=== PATIENT | male | born 1990 | race Hispanic/Latino ===

== ENCOUNTER 2022-03-17 20:10 | Emergency (ER) | payer SELFPAY ==
--- OUTSIDE RECORDS SUMMARY | 2022-03-17 20:13 | XMS REPORT | Continuity of Care Document ---
:1990 Author Organization [facility] t Address [address] [place] [address] Care Team Providers Name Role Phone Pcp, Does Not Have A Primary Care Physician Thompson DO Attending Clinician THOMPSON Attending Clinician Unavailable Payers Payer Name Policy Type Policy Number Effective Date Expiration Date S [facility] - [id number] 2018 00:00:00 OUT OF STATE Problems Condition Condition Condition Status Onset Resolution Last Treating Co mments Source Name Details Category Date Date Treatment Clinician Date No known No known Disease Unive rs active active ity of problems problems [facility] Allergies, Adverse Reactions, Alerts Allergy Allergy Status Severity Reaction(s) Onset Inactive Treating Comm ents Source Name Type Date Date Clinician NO KNOWN Drug Active Univers ALLERGIE Class ity of S [facility] Social History Social Habit Start Date Stop Date Quantity Comments Source Exposure to Not sure [facility] SARS-CoV-2 (event) Medica l Branch Sex Assigned At [birth year] [facility] 00:00:00 00:00:00 [facility] Branch Smoking Status Start Date Stop Date Source Unknown if ever smoked [facility] Medications Ordered Filled Start Stop Current Ordering Indication Dosage Frequency Signature Comments Components Source Medication Medication Date Date Medication? Clinician (SIG) Name Name hydrOXYzine Yes [id number] 10mg Take 1 Univers 10 mg 9-02 tablet by ity of tablet 00:00: mouth [place] 00 every 6 Medical (six) Branch hours. hydrocortis Yes [id number] Apply to Univers one 1 % 9-02 affected ity of cream 00:00: area(s) [place] 00 daily. Medical Branch Vital Signs Vital Name Observation Time Observation Value Comments Source Systolic blood 2021-07-03 12:50:00 153 mm[Hg] Univer sity of pressure [facility] Diastolic blood 2021-07-03 12:50:00 105 mm[Hg] Unive rsity of pressure [facility] Heart rate 2021-07-03 12:50:00 70 /min [facility] Body temperature 2021-07-03 12:50:00 37 [facility] Respiratory rate 2021-07-03 12:50:00 20 /min [facility] Body height 2021-07-03 12:50:00 170.2 cm [facility] Body weight 2021-07-03 12:50:00 87.363 kg [facility] BMI 2021-07-03 12:50:00 30.17 kg/m2 [facility] Oxygen saturation in 2021-07-03 12:50:00 97 /min [facility] Arterial blood by [facility] Pulse oximetry [place] Procedures Procedure Date / Time Performed Performing Clinician [facility] e NOTICE OF PRIVACY 2021-07-03 12:43:57 Doctor Unassigned, No [facility] PRACTICES Name [facility] CONSENT/REFUSAL FOR 2021-07-03 12:41:48 [facility], [facility] AND Name Medical Branch TREATMENT Encounters Start End Encounter Admission Attending Care Care Encounter Source Date/Time Date/Time Type Type Clinicians Facility Department ID 2021-07-03 2021-07-03 Emergency Singer WAITALIA [id number] Univers 07:53:00 08:25:00 Sang Ricci [id number] i ty [facility] [id number] [facility] [id number] [facility] 084 Branch 2021-07-03 2021-07-03 Emergency X BETSY THOMPSON ERT [id number] Univers 07:41:00 07:41:00 SANG rosario [facility] Results This patient has no known results.
--- NOTE | 2022-03-17 21:33 | EDPHYS ---
Physician Documentation [facility] Name: Dmitriy Rojas Age: 32 yrs Sex: Male : 1990 Arrival Date: 03/17/2022 Time: 20:13 Bed DIS3 Private MD: ED Physician Corey Felipe HPI: 03/17 21:22 This 32 yrs old Male presents to ER via Ambulatory with complaints of jmm Abdominal Pain. 21:22 Onset: The symptoms/episode began/occurred acutely, today. This is a 32-year-old male jmm with no chronic medical conditions presents emerged part with complaints of mild abdominal cramping with multiple episodes of loose stools. Patient denies vomiting or nausea. Patient states symptoms have completely resolved.. Historical: - Allergies: 20:36 No Known Allergies; ld1 - Home Meds: 20:36 None [Active]; ld1 - PMHx: 20:36 None; ld1 - PSHx: 20:36 None; ld1 - Immunization history:: Adult Immunizations up to date, Client reports having NOT received the Covid vaccine. - Social history:: Smoking status: Patient denies any tobacco usage or history of. Patient/guardian denies using alcohol. ROS: 21:22 Constitutional: Negative for fever, chills, and weight loss, Cardiovascular: Negative jmm for chest pain, palpitations, and edema, Respiratory: Negative for shortness of breath, cough, wheezing, and pleuritic chest pain. 21:22 Abdomen/GI: Positive for diarrhea. 21:22 All other systems are negative. Exam: 21:22 Constitutional: This is a well developed, well nourished patient who is awake, alert, jmm and in no acute distress. Head/Face: atraumatic. Eyes: EOMI, no conjunctival erythema appreciated ENT: Moist Mucus Membranes Neck: Trachea midline, Supple Chest/axilla: Normal chest wall appearance and motion. Cardiovascular: Regular rate and rhythm. No edema appreciated Respiratory: Normal respirations, no respiratory distress appreciated 21:22 Back: Normal ROM Skin: General appearance color normal MS/ Extremity: Moves all extremities, no obvious deformities appreciated, no edema noted to the lower extremities Neuro: Awake and alert Psych: Behavior is normal, Mood is normal, Patient is cooperative and pleasant 21:22 Abdomen/GI: Inspection: abdomen appears normal, Bowel sounds: normal, Palpation: soft, nontender, in all quadrants. Vital Signs: 20:35 BP 136 / 88; Pulse 98; Resp 18; Temp 98.6(TE); Pulse Ox 96% on R/A; Weight 81.65 kg; ld1 Height 5 ft. 7 in. (170.18 cm); Pain 0/10; 20:35 Body Mass Index 28.19 (81.65 kg, 170.18 cm) ld1 MDM: 21:22 Patient medically screened. [facility] 21:32 Data reviewed: vital signs, nurses notes. Counseling: I had a detailed discussion with jessica the patient and/or guardian regarding: the historical points, exam findings, and any diagnostic results supporting the discharge/admit diagnosis, the need for outpatient follow up, to return to the emergency department if symptoms worsen or persist or if there are any questions or concerns that arise at home. ED course: Patient is alert nontoxic in appearance in the ED. No abdominal pain on palpation. I do not suspect acute intra-abdominal process. Patient advised follow-up PCP and otherwise given strict return precautions patient understood and agrees with the plan of care. . Administered Medications: No medications were administered Disposition: 03/18 08:18 Co-signature as Attending Physician, Corey Felipe MD. [email or web address] Disposition Summary: 03/17/22 21:33 Discharge Ordered Location: Home [facility] Condition: Stable [facility] Diagnosis - Diarrhea, unspecified [facility] Followup: [facility] - With: Private Physician - When: 2 - 3 days - Reason: Recheck today's complaints, Continuance of care, Re-evaluation by your physician Discharge Instructions: - Discharge Summary Sheet [facility] - Food Choices to Help Relieve Diarrhea, Adult [facility] Forms: - Medication Reconciliation Form [facility] - Thank You Letter [facility] - Antibiotic Education [facility] - Work release form [facility] - Prescription Opioid Use [facility] Signatures: Jerson Valencia PA PA jmm Holmes, Maurice, MD MD [email or web address] Cynthia Neal, RN RN ld1
--- NOTE | 2022-03-17 21:33 | ER ---
Nurse's Notes [facility] Name: Dmitriy Rojas Age: 32 yrs Sex: Male : 1990 Arrival Date: 03/17/2022 Time: 20:13 Bed DIS3 Private MD: Diagnosis: Diarrhea, unspecified Presentation: 03/17 20:35 Chief complaint: Patient states: Pt states "I was having diarrhea but I am okay now." ld1 Pt states "I just want a doctors note for work.". Coronavirus screen: At this time, the client does not indicate any symptoms associated with coronavirus-19. Ebola Screen: No symptoms or risks identified at this time. Initial Sepsis Screen: Does the patient meet any 2 criteria? No. Patient's initial sepsis screen is negative. Does the patient have a suspected source of infection? No. Patient's initial sepsis screen is negative. Risk Assessment: Do you want to hurt yourself or someone else? Patient reports no desire to harm self or others. Onset of symptoms was March 17, 2022. 20:35 Method Of Arrival: Ambulatory ld1 20:35 Acuity: ESTHER 4 ld1 Triage Assessment: 20:36 General: Appears in no apparent distress. comfortable, Behavior is calm, cooperative, ld1 appropriate for age. Pain: Denies pain. Neuro: Level of Consciousness is awake, alert, obeys commands, Oriented to person, place, time, situation. Respiratory: Airway is patent Respiratory effort is even, unlabored, Respiratory pattern is regular, symmetrical. GI: Abdomen is round non-distended, Patient currently denies pain. Historical: - Allergies: 20:36 No Known Allergies; ld1 - Home Meds: 20:36 None [Active]; ld1 - PMHx: 20:36 None; ld1 - PSHx: 20:36 None; ld1 - Immunization history:: Adult Immunizations up to date, Client reports having NOT received the Covid vaccine. - Social history:: Smoking status: Patient denies any tobacco usage or history of. Patient/guardian denies using alcohol. Screenin:50 Abuse screen: Denies threats or abuse. Nutritional screening: No deficits noted. bb Tuberculosis screening: No symptoms or risk factors identified. Fall Risk None identified. Assessment: 21:50 General: Appears in no apparent distress. Behavior is calm, cooperative. Neuro: Level bb of Consciousness is awake, alert, obeys commands, Oriented to person, place, time, situation. Cardiovascular: Capillary refill < 3 seconds Patient's skin is warm and dry. Respiratory: Airway is patent Respiratory effort is even, unlabored. GI: Bowel sounds present X 4 quads. Abd is soft and non tender X 4 quads. Derm: Skin is pink, warm \\T\\ dry. Musculoskeletal: Circulation, motion, and sensation intact. Vital Signs: 20:35 BP 136 / 88; Pulse 98; Resp 18; Temp 98.6(TE); Pulse Ox 96% on R/A; Weight 81.65 kg; ld1 Height 5 ft. 7 in. (170.18 cm); Pain 0/10; 20:35 Body Mass Index 28.19 (81.65 kg, 170.18 cm) ld1 ED Course: 20:13 Patient arrived in ED. ja2 20:36 Triage completed. ld1 20:36 Arm band placed on right wrist. 1 21:08 Jerson Valencia PA is PHCP. [facility] 21:08 Corey Felipe MD is Attending Physician. [facility] 21:32 Rebecca Tovar, RN is Primary Nurse. bb 21:50 Patient has correct armband on for positive identification. bb 21:50 No provider procedures requiring assistance completed. Patient did not have IV access bb during this emergency room visit. Administered Medications: No medications were administered Outcome: 21:33 Discharge ordered by MD. [facility] 21:50 Discharged to home ambulatory. bb 21:50 Condition: stable 21:50 Discharge instructions given to patient, Instructed on discharge instructions, follow up and referral plans. Demonstrated understanding of instructions, follow-up care. 21:51 Patient left the ED. bb Signatures: Jerson Valencia PA PA jmm Ballard, Brenda, RN RN bb Cynthia Neal RN RN ld1 Eli Chawla
[2022-03-17 21:59] VITALS: BP 136/88; TEMP 98.6; O2SAT 96
== END 2022-03-17 21:51 | disposition home or self-care (01) ==
LOC: ER 20:10
DX: R19.7 Diarrhea, unspecified (principal)
CPT/HCPCS: 99281